=== PATIENT | female | born 1985 | race Caucasian/White ===

== ENCOUNTER 2018-12-09 16:34 | Emergency (ER) | payer OTHER ==
[~2018-12-09] VITALS: Ht 157.5 cm; Wt 79.4 kg
[~2018-12-09 16:34] MED LIST: FLOVENT HFA 1110 MCG INH; LEVOTHYROXIN0.025 MG PO; UNICOMPLEX M TA1 TA1 PO; VITAMIN D1000 UNI1 PO; XYZAL5 MG PO; ZOFRAN ODT4 MG PO
[2018-12-09] MEDS ORDERED: ALLEGRA ALLERG180 MG PO (16:44)
[2018-12-09] MEDS ORDERED: SYNTHROID50 MCG PO (16:48)
[2018-12-09] MEDS ORDERED: TOPAMAX 25 MG T25 M1 PO (16:48)
[2018-12-09 17:01] LABS: ABSOLUTE NEUTROPHILS 6.5 thou/uL (1.4-8.2); BASOPHILS 0.5 % (0.0-2.0); EOSINOPHILS 1.3 % (0.0-3.0); HEMATOCRIT 43.7 % (37.0-47.0); HEMOGLOBIN 15.2 gm/dL (12.0-15.0); LYMPHOCYTES 27.6 % (24.0-44.0); MCH 32.3 pg (26.0-34.0); MCHC 34.7 g/dL (28.0-37.0); MCV 93.2 fL (80.0-100.0); MONOCYTES 5.6 % (1.0-8.0); PLATELET COUNT 380 thou/uL (150-400); RBC 4.69 mil/uL (4.20-5.00); RDW 13.5 % (10.5-14.5)
[2018-12-09 17:06] LABS: URINE BILIRUBIN NEGATIVE (Negative); URINE BLOOD NEGATIVE (Negative); URINE CLARITY CLEAR; URINE COLOR YELLOW; URINE GLUCOSE-RANDOM* NEGATIVE (Negative); URINE KETONES NEGATIVE (Negative); URINE LEUKOCYTES-REFLEX NEGATIVE (Negative); URINE NITRITE-REFLEX NEGATIVE (Negative); URINE PROTEIN (DIPSTICK) NEGATIVE (Negative); URINE SPECIFIC GRAVITY <= 1.005 (1.005-1.035); URINE UROBILINOGEN 0.2 E.U./dl (0.2-1.0)
[2018-12-09 17:06] LABS: CALCIUM 9.7 mg/dL (8.5-10.1); CREATININE 0.8 mg/dL (0.6-1.0); POTASSIUM 3.5 mmol/L (3.5-5.1)
[2018-12-09 18:20] VITALS: BP 98/64
[2018-12-09] MEDS ORDERED: ZANTAC 150MG T150 MG PO (18:26)
[2018-12-09] MEDS ORDERED: PREDNISONE 20 M20 MG PO (18:26)
== END 2018-12-09 18:55 | disposition home or self-care (01) ==
LOC: ER 16:34
PROVIDERS: Nurse Practitioner Family
DX: T78.1XXA Other adverse food reactions, not elsewhere classified, initial encounter (principal); X58.XXXA Exposure to other specified factors, initial encounter; E03.9 Hypothyroidism, unspecified